=== PATIENT | male | born 1940 | race African-American/Black ===

== ENCOUNTER 2018-06-01 11:16 | Emergency (ER) | payer OTHER, MEDICAID ==
[~2018-06-01] VITALS: Ht 182.9 cm; Wt 71.2 kg
[~2018-06-01 11:16] MED LIST: FAMOTIDINE; LEVE500T9 PO; [UNRECOGNIZED DRUG - OTHER]; amlodipine; asa; plavix
[2018-06-01] MEDS ORDERED: SODIUM CHLORIDE 0.9% 1,000 ML IV ONE (11:39)
[2018-06-01 12:15] LABS: BASOPHILS % 0.5 % (0.0-2.0); EOSINOPHILS % 0.6 % (0.0-5.0); HEMATOCRIT. 43.7 % (42.0-52.0); HEMOGLOBIN. 14.2 g/dL (14.0-18.0); LYMPHOCYTES % 15.9 % (20.0-50.0); MEAN CORPUSCULAR HEMOGLOBIN 29.5 pg (28.0-32.0); MEAN CORPUSCULAR VOLUME 90.8 fL (80.0-94.0); MEAN PLATELET VOLUME 11.2 fl (7.4-10.4); MONOCYTES % 5.8 % (2.0-8.0); NEUTROPHILS % 77.2 % (40.0-76.0); PLATELET 280 x1000/uL (130-400); RED BLOOD CELL COUNT 4.82 mill/uL (4.7-6.1); RED CELL DISTRIBUTION WIDTH 14.3 % (11.6-14.6)
[2018-06-01 12:19] LABS: CHLORIDE 104 mEq/L (98-107)
[2018-06-01 12:20] LABS: INR 1.2; PROTHROMBIN TIME 12.5 sec (9.1-11.1)
[2018-06-01] MEDS ORDERED: IOHEXOL-350 100 ML BOTTLE ONE (13:16)
[2018-06-01] MEDS ORDERED: IOHEXOL-300 100 ML BOTTLE ONE (14:22)
[2018-06-01 15:04] LABS: CLARITY URINE CLEAR (CLEAR); COLOR URINE YELLOW (YELLOW); KETONES URINE NEGATIVE (NEGATIVE); LEUKOCYTE ESTERASE URINE NEGATIVE (NEGATIVE); NITRITE URINE NEGATIVE (NEGATIVE); OCCULT BLOOD URINE 2+ (NEGATIVE); PH URINE 5.5 (4.5-8.0); PROTEIN URINE TRACE (NEGATIVE); SPECIFIC GRAVITY URINE 1.062 (1.005-1.030)
[2018-06-01] MEDS ORDERED: ACETAMINOPHEN 325MG TABLET PO PRN (16:15)
[2018-06-01] MEDS ORDERED: CEFTRIAXONE 1 G PREMIX 50 ML IV SCH (16:15)
[2018-06-01] MEDS ORDERED: PANTOPRAZOLE SODIUM 40 MG/VIAL IV SCH (16:15)
[2018-06-01] MEDS ORDERED: MAGNESIUM/ALUMINUM HYDROXIDE/SIMETHICONE 30ML UDC PO PRN (16:15)
[2018-06-01] MEDS ORDERED: SODIUM CHLORIDE 0.9% 1,000 ML IV SCH (16:15)
[2018-06-01] MEDS ORDERED: ENOXAPARIN 40MG/0.4ML SYR SUBCUT SCH (16:15)
[2018-06-01] MEDS ORDERED: CLONIDINE 0.1MG TABLET PO PRN (16:15)
[2018-06-01] MEDS ORDERED: IPRATROPIUM/ALBUTEROL 0.5-3(2.5)MG/3ML NEB INH PRN (16:15)
[2018-06-01] MEDS ORDERED: ONDANSETRON HCL 4MG/2ML INJ IV PRN (16:15)
[2018-06-01 17:00] LABS: PHOSPHORUS 2.8 mg/dL (2.5-4.9)
[2018-06-01] MEDS ORDERED: AMLODIPINE 5MG TABLET PO SCH (18:00)
[2018-06-01 20:10] VITALS: BP 142/83
[2018-06-01] MEDS ORDERED: LEVETIRACETAM 500MG TABLET PO SCH (21:00)
== END 2018-06-01 20:15 | disposition short-term general hospital (02) ==
LOC: ER 11:16 → CANBEDREQ 16:13 → ER 20:15
DX: R91.8 Other nonspecific abnormal finding of lung field (principal); R53.1 Weakness; I10 Essential (primary) hypertension; I50.9 Heart failure, unspecified; R10.30 Lower abdominal pain, unspecified; R56.9 Unspecified convulsions; J44.9 Chronic obstructive pulmonary disease, unspecified; J90 Pleural effusion, not elsewhere classified; R59.9 Enlarged lymph nodes, unspecified; Z85.46 Personal history of malignant neoplasm of prostate; Z86.73 Personal history of transient ischemic attack (TIA), and cerebral infarction without residual deficits
CPT/HCPCS: 36415; 70496; 70498; 71045; 71260; 80053; 81003; 82962; 83605; 83690; 83735; 83880; 84100; 84484; 85025; 85610; 87040; 93005; 99285; J7030; Q9967